=== PATIENT | female | born 1990 | race African-American/Black ===

== ENCOUNTER 2016-05-22 19:30 | Inpatient (IN) | payer MEDICAID ==
[~2016-05-22] VITALS: Ht 167.6 cm; Wt 59.0 kg
[2016-05-22 20:51] VITALS: BP 125/75
[2016-05-22 21:30] LABS: BASOPHILS % (AUTO) 0.9 % (0.0-2.0); LYMPHOCYTES % (AUTO) 10.4 % (20.0-45.0); MEAN CORPUSCULAR HEMOGLOBIN 32.5 PG (27.0-31.0); MEAN CORPUSCULAR HGB CONC 35.1 G/DL (32.0-36.0); MEAN CORPUSCULAR VOLUME 93 FL (80-99); MEAN PLATELET VOLUME 10.6 FL (6.5-10.1); MONOCYTES % (AUTO) 5.2 % (1.0-10.0); NEUTROPHILS % (AUTO) 82.5 % (45.0-75.0); PLATELET COUNT 170 K/UL (150-450); RED BLOOD COUNT 3.72 M/UL (4.20-5.40); RED CELL DISTRIBUTION WIDTH 12.1 % (11.6-14.8); WHITE BLOOD COUNT 9.4 K/UL (4.8-10.8)
[2016-05-22 21:39] LABS: ALANINE AMINOTRANSFERASE 9 U/L (3-33); ALBUMIN/GLOBULIN RATIO 1.2 (1.0-2.7); ANION GAP 15 (5-15); ASPARTATE AMINO TRANSFERASE 19 U/L (5-40); CALCIUM 9.1 mg/dL (8.6-10.2); CARBON DIOXIDE 28 mEQ/L (20-30); CHLORIDE 97 mEQ/L (98-107); CREATININE 0.9 mg/dL (0.5-0.9); GLOMERULAR FILTRATION RATE > 60 mL/min (>60); HEMOLYSIS 2; LIPASE 23 U/L (< 60); POTASSIUM 3.9 mEQ/L (3.4-4.9); SODIUM 140 mEQ/L (135-145); TOTAL PROTEIN 7.5 g/dL (6.6-8.7)
[2016-05-22] MEDS ORDERED: Morphine Sulfate 4mg/ml Inj IVP ONE (23:15)
[2016-05-22 23:35] VITALS: BP 95/55
--- NOTE | 2016-05-22 23:42 | Emergency Room Report ---
History of Present Illness General Chief Complaint: Abdominal Pain Source: EMS Present Illness HPI 25-year-old female presents to ED for evaluation of abdominal pain. Pain started approximately 30 minutes prior to arrival. Pain is 8/10, sharp, lower. Nonradiating. Notes nausea and vomiting. Denies fevers or chills. Patient states one month ago she had a "". Patient she took the pills she received from [facility]. States she was approximately 6 weeks at the time. Was told there is a problem with her but does not know what the problem was. Denies any vaginal bleeding or discharge. Denies dysuria or hematuria. No aggravating relieving factors. Denies any other associated symptoms Allergies: Coded Allergies: No Known Allergies (Unverified , 05/22/16) Patient History Past Medical History: none Past Surgical History: none Pertinent Family History: none Social History: Denies: alcohol use, drug use, smoking Now: No Immunizations: UTD Reviewed Nursing Documentation: PMH: Agreed, PSxH: Agreed Nursing Documentation-PMH Past Medical History: No Stated History Review of Systems All Other Systems: negative except mentioned in HPI Physical Exam Vital Signs Date Time Temp Pulse Resp B/P Pulse Ox O2 Delivery O2 Flow Rate FiO2 05/22/16 20:34 98.4 77 19 125/75 98 Room Air Sp02 EP Interpretation: reviewed, normal General Appearance: alert, GCS 15, non-toxic, mild distress Head: normocephalic Eyes: bilateral eye PERRL, bilateral eye normal inspection ENT: normal ENT inspection Neck: normal inspection Respiratory: chest non-tender, lungs clear, normal breath sounds, speaking full sentences Cardiovascular #1: regular rate, rhythm, no edema Gastrointestinal: normal bowel sounds, soft, non-distended, no guarding, no rebound, tenderness - suprapubic Rectal: deferred Genitourinary: no CVA tenderness Musculoskeletal: normal inspection Neurologic: alert, oriented x3, responsive, motor strength/tone normal, sensory intact, speech normal Psychiatric: normal inspection Skin: normal inspection Lymphatic: normal inspection Medical Decision Making Diagnostic Impression: Primary Impression: Ectopic Qualified Codes: O00.90 - Unspecified ectopic without intrauterine Additional Impression: Abdominal pain Qualified Codes: R10.30 - Lower abdominal pain, unspecified ER Course Hospital Course 25-year-old female presents ED complaining of abdominal pain and vomiting. Had one month ago Differential diagnoses include: PID, TOA, ectopic , retained products of conception Clinical course Patient placed on stretcher. occ ther. After initial history and physical I ordered labs, IV fluids, UA, pain medication and US Labs - no leukocytosis, Hb/Hct stable, electrolytes ok, BHCG 605 Pelvic US - pelvic mass within midline . L adenxal mass continguous with midline lesion. ? ectopic Case discussed with Dr. Umanzor who agreed to consult Case discussed with Dr. Gonsalez and he agreed to accept the patient to his service for further care and support I feel this is a highly complex case requiring extensive working including EKG/ Rhythm strip, Xray/CT/US, Blood/urine lab work, repeat exams while in ED, and administration of strong opiates/narcotics for pain control, admission to hospital or close patient follow up. Diagnosis - ectopic , abdominal pain Patient admitted to floor in serious condition Labs Test 05/22/16 21:00 White Blood Count 9.4 K/UL (4.8-10.8) Red Blood Count 3.72 M/UL (4.20-5.40) Hemoglobin 12.1 G/DL (12.0-16.0) Hematocrit 34.4 % (37.0-47.0) Mean Corpuscular Volume 93 FL (80-99) Mean Corpuscular Hemoglobin 32.5 PG (27.0-31.0) Mean Corpuscular Hemoglobin Concent 35.1 G/DL (32.0-36.0) Red Cell Distribution Width 12.1 % (11.6-14.8) Platelet Count 170 K/UL (150-450) Mean Platelet Volume 10.6 FL (6.5-10.1) Neutrophils (%) (Auto) 82.5 % (45.0-75.0) Lymphocytes (%) (Auto) 10.4 % (20.0-45.0) Monocytes (%) (Auto) 5.2 % (1.0-10.0) Eosinophils (%) (Auto) 1.0 % (0.0-3.0) Basophils (%) (Auto) 0.9 % (0.0-2.0) Sodium Level 140 mEQ/L (135-145) Potassium Level 3.9 mEQ/L (3.4-4.9) Chloride Level 97 mEQ/L (98-107) Carbon Dioxide Level 28 mEQ/L (20-30) Anion Gap 15 (5-15) Blood Urea Nitrogen 16 mg/dL (7-23) Creatinine 0.9 mg/dL (0.5-0.9) Estimat Glomerular Filtration Rate > 60 mL/min (>60) Glucose Level 96 mg/dL (74-106) Calcium Level 9.1 mg/dL (8.6-10.2) Total Bilirubin 0.3 mg/dL (0.0-1.2) Aspartate Amino Transf (AST/SGOT) 19 U/L (5-40) Alanine Aminotransferase (ALT/SGPT) 9 U/L (3-33) Alkaline Phosphatase 90 U/L (35-104) Total Protein 7.5 g/dL (6.6-8.7) Albumin 4.2 g/dL (3.5-5.2) Globulin 3.3 g/dL Albumin/Globulin Ratio 1.2 (1.0-2.7) Lipase 23 U/L (< 60) Human Chorionic Gonadotropin, Quant 605 mIU/mL CT/MRI/US Diagnostic Results CT/MRI/US Diagnostic Results : Imaging Test Ordered: Pelvic US Impression pelvic mass within the midline measuring up to 4.9 cm. The left adnexal mass is also suspected but appears immediately contiguous with the midline lesion. The left adnexal mass may represent an ectopic with the midline mass a heterogeneous blood clot. Last Vital Signs Date Time Temp Pulse Resp B/P Pulse Ox O2 Delivery O2 Flow Rate FiO2 05/22/16 23:35 97.8 80 12 95/55 100 Room Air Status: improved Disposition: ADMITTED INPATIENT Condition: Serious SONDRA SNOW M.D. May 22, 2016 23:42
[2016-05-23 01:30] VITALS: BP 101/58
[2016-05-23] MEDS ORDERED: Methotrexate Sodium 50mg/2ml vial IM ONE ×2 (01:45→09:00)
[2016-05-23] MEDS ORDERED: Morphine Sulfate 2mg/ml Inj IVP PRN (02:45)
[2016-05-23] MEDS ORDERED: Nitroglycerin Subl 0.4mg tab (Bottle Of 25) SL PRN (02:45)
[2016-05-23] MEDS ORDERED: Miralax 17gm pkt ORAL PRN (02:45)
[2016-05-23] MEDS ORDERED: Mylanta II UD 30ml ORAL PRN (02:45)
[2016-05-23] MEDS ORDERED: UNOBMED (02:48)
[2016-05-23] MEDS ORDERED: IBUPROFEN600 MG ORAL (02:50)
[2016-05-23 03:15] VITALS: BP_SYST 101; BP_SYST 99; BP_DIAS 50; BP_DIAS 55
[2016-05-23] MEDS: D5 1/2NS 1,000 ML IV SCH ×2 (04:19→17:48)
[2016-05-23 08:00] VITALS: BP 91/52
[2016-05-23] MEDS: Heparin 5000 units/ml inj SUBQ SCH ×2 (10:01→20:52)
[2016-05-23 10:05] LABS: PROTHROMBIN TIME 10.6 SEC (9.30-11.50)
--- NOTE | 2016-05-23 10:37 | GI Initial Consult Note ---
History of Present Illness General Date patient seen: May 23, 2016 Time patient seen: 09:00 Reason for Hospitalization: Abdominal Pain Referring physician: ZARI CHO Reason for Consultation: ABDOMINAL PAIN Present Illness HPI 25-year-old female presents to ED for evaluation of abdominal pain. Pain started approximately 30 minutes prior to arrival. Pain is 8/10, sharp, lower. Nonradiating. Notes nausea and vomiting. Denies fevers or chills. Patient states one month ago she had a "". Patient she took the pills she received from [facility]. States she was approximately 6 weeks at the time. Was told there is a problem with her but does not know what the problem was. Denies any vaginal bleeding or discharge. Denies dysuria or hematuria. No aggravating relieving factors. Denies any other associated symptoms GI CONSULT: HPI as noted above. GI consulted for abdominal pain with reported eps of N/V. Pt seen on floor, awake A&Ox4 NAD with no active s/sx of N/V. CBC , LFTs, lipase unremarkable. Pt denies any medical history. Denies ETOH, IVDA , and tobacco use. No history of any endoscopic procedures. Home Meds Reported Medications Ibuprofen* (MOTRIN*) 600 Mg Tablet, 600 MG ORAL THREE TIMES A DAY, #30 TAB 0 Refills 05/23/16 Discontinued Reported Medications Unable to Obtain Medications (UNABLE TO OBTAIN MEDS) 1 Ea Ea 05/23/16 Med list reviewed/reconciled: Yes Allergies: Coded Allergies: No Known Allergies (Unverified , 05/22/16) Patient History History Provided By: Patient, Medical Record PMH Narrative Past Medical History: none Past Surgical History: none Pertinent Family History: none Social History: Denies: alcohol use, drug use, smoking Now: No Immunizations: UTD Reviewed Nursing Documentation: PMH: Agreed, PSxH: Agreed Nursing Documentation-PMH Past Medical History: No Stated History Social History: Denies: alcohol use, drug use, other, smoking Review of Systems All Other Systems: negative except mentioned in HPI Physical Exam Vital Signs Date Time Temp Pulse Resp B/P Pulse Ox O2 Delivery O2 Flow Rate FiO2 05/22/16 20:34 98.4 77 19 125/75 98 Room Air Sp02 EP Interpretation: reviewed Labs Laboratory Tests Test 05/22/16 21:00 05/23/16 09:10 White Blood Count 9.4 K/UL (4.8-10.8) Red Blood Count 3.72 M/UL (4.20-5.40) L Hemoglobin 12.1 G/DL (12.0-16.0) Hematocrit 34.4 % (37.0-47.0) L Mean Corpuscular Volume 93 FL (80-99) Mean Corpuscular Hemoglobin 32.5 PG (27.0-31.0) H Mean Corpuscular Hemoglobin Concent 35.1 G/DL (32.0-36.0) Red Cell Distribution Width 12.1 % (11.6-14.8) Platelet Count 170 K/UL (150-450) Mean Platelet Volume 10.6 FL (6.5-10.1) H Neutrophils (%) (Auto) 82.5 % (45.0-75.0) H Lymphocytes (%) (Auto) 10.4 % (20.0-45.0) L Monocytes (%) (Auto) 5.2 % (1.0-10.0) Eosinophils (%) (Auto) 1.0 % (0.0-3.0) Basophils (%) (Auto) 0.9 % (0.0-2.0) Sodium Level 140 mEQ/L (135-145) Potassium Level 3.9 mEQ/L (3.4-4.9) Chloride Level 97 mEQ/L (98-107) L Carbon Dioxide Level 28 mEQ/L (20-30) Anion Gap 15 (5-15) Blood Urea Nitrogen 16 mg/dL (7-23) Creatinine 0.9 mg/dL (0.5-0.9) Estimat Glomerular Filtration Rate > 60 mL/min (>60) Glucose Level 96 mg/dL (74-106) Calcium Level 9.1 mg/dL (8.6-10.2) Total Bilirubin 0.3 mg/dL (0.0-1.2) Aspartate Amino Transf (AST/SGOT) 19 U/L (5-40) Alanine Aminotransferase (ALT/SGPT) 9 U/L (3-33) Alkaline Phosphatase 90 U/L (35-104) Total Protein 7.5 g/dL (6.6-8.7) Albumin 4.2 g/dL (3.5-5.2) Globulin 3.3 g/dL Albumin/Globulin Ratio 1.2 (1.0-2.7) Lipase 23 U/L (< 60) Human Chorionic Gonadotropin, Quant 605 mIU/mL Prothrombin Time 10.6 SEC (9.30-11.50) Prothromb Time International Ratio 1.0 (0.9-1.1) Activated Partial Thromboplast Time 25 SEC (23-33) General Appearance: well appearing, no apparent distress, alert Head: normocephalic EENT: PERRL/EOMI, normal ENT inspection Neck: normal inspection, full range of motion, supple Respiratory: normal breath sounds Cardiovascular: normal rate Gastrointestinal: normal inspection, non tender, soft, normal bowel sounds Rectal: deferred Genitourinary: normal inspection, no CVA tenderness Musculoskeletal: normal inspection, back normal Neurologic: normal inspection, alert, oriented x3, responsive Psychiatric: normal inspection, judgement/insight normal, memory normal Skin: normal inspection, normal color, no rash, warm/dry Current Medications Current Medications Medications (Trade) Dose Ordered Sig/Bowen Route PRN Reason Start Time Stop Time Status Last Admin Dose Admin Acetaminophen (Tylenol) 650 mg Q4H PRN ORAL fever 05/23/16 02:45 06/22/16 02:44 Al Hydroxide/Mg Hydroxide (Mylanta II) 30 ml Q6H PRN ORAL dyspepsia 05/23/16 02:45 06/22/16 02:44 Dextrose (Dextrose 50%) STAT PRN IV Hypoglycemia 05/23/16 02:45 06/22/16 02:44 Dextrose/Sodium Chloride (D5 0.45% NS) 1,000 ml @ 75 mls/hr [id number] IV 05/23/16 04:00 06/22/16 03:59 05/23/16 04:19 Diphenhydramine HCl (Benadryl) 25 mg Q6H PRN ORAL Itching/Pruritis 05/23/16 02:45 06/22/16 02:44 Heparin Sodium (Porcine) (Heparin 5000 units/ml) 5,000 units EVERY 12 HOURS SUBQ 05/23/16 09:00 06/22/16 08:59 05/23/16 10:01 Morphine Sulfate (Morphine Sulfate) 2 mg EVERY 4 HOURS PRN IVP severe Pain (Pain Scale 7-10) 05/23/16 02:45 05/30/16 02:44 Nitroglycerin (Ntg) 0.4 mg Q5M X 3 DOSES PRN SL Prn Chest Pain 05/23/16 02:45 06/22/16 02:44 Ondansetron HCl (Zofran) 4 mg Q6H PRN IVP Nausea & Vomiting 05/23/16 02:45 06/22/16 02:44 Polyethylene Glycol (Miralax) 17 gm HSPRN PRN ORAL Constipation 05/23/16 02:45 06/22/16 02:44 Temazepam (Restoril) 15 mg HSPRN PRN ORAL Insomnia 05/23/16 02:45 05/30/16 02:44 GI: Plan Problems: (1) Ectopic (2) Abdominal pain (3) Nausea & vomiting Plan recommend [employer] consult symptomatic treatment at this time zofran prn pain mgmt fu pelvic US fu abdominal US, ok for regular diet after imaging study fu labs Discussed with Dr. Guajardo. Thank you for referring this patient, we will follow. Arlene Cheng N.P. May 23, 2016 10:37
[2016-05-23 12:00] VITALS: BP 110/70
--- NOTE | 2016-05-23 14:17 | Diagnostic Imaging Report ---
Indication: Pelvic pain, recent medical Technique: Transabdominal and transvaginal images Comparison: None Findings: Uterus is anteverted, retroflexed, measures 8.9 cm length of 4.4 cm AP. The endometrium measures 7 mm thick no intrauterine is demonstrated. No myometrial abnormality. Extending posterior to the uterus and extending for both adnexal regions, there is a 9 x 5.4 cm mixed echogenicity mass. This appears to be hypovascular or avascular. If there is mostly related to the left ovary. The left ovary measures 2.9 cm in length. Right ovary measures 3.6 cm in length with areas demonstrate normal blood flow. There is no free cul-de-sac fluid Impression: 9 x 5.4 cm mixed echogenicity mass involving the left adnexal region and extending posterior to the uterus. Suspect that this represents a large hematoma, raises concern for ectopic , possibly of left adnexal origin. Correlation with clinical findings and serial beta hCGs is recommended. Other etiologies such as neoplasm should also be considered This agrees with the preliminary interpretation provided overnight by [facility] teleradiology service.
--- NOTE | 2016-05-23 14:19 | Diagnostic Imaging Report ---
Indication: Abdominal pain, nausea, vomiting Technique: Subramanian-scale and duplex images of the upper abdomen were obtained Comparison: None Findings: . Gallbladder is unremarkable, without stones, wall thickening, nor pericholecystic fluid. Sonographic Griggs's sign is negative. Common bile duct measures 4 mm in diameter. No intrahepatic biliary ductal dilatation. Liver demonstrates normal echogenicity, no focal abnormality. Portal vein and hepatic veins are patent.. Pancreas is unremarkable. Spleen is unremarkable. Left kidney measures 10.8 cm in length. Right kidney measures 11.8 cm length. Both kidneys demonstrate normal echogenicity. There is no hydronephrosis. No focal abnormality. . Non-aneurysmal abdominal aorta. Impression: Negative
--- NOTE | 2016-05-23 15:38 | History & Physical ---
History and Physical History & Physicial Uday Gonsalez MD May 23, 2016 15:38
[2016-05-23 17:00] VITALS: BP 115/54
--- NOTE | 2016-05-23 18:58 | Consultation ---
Consult Note Consult Note 25 year old s/p Medical 1 mo ago Now with probable ectopic - likely twin ectopic remaining from 1 month ago B-HCG = 600 Pt is with mild abdominal pain, no rebound, some increase with deep palpation Assessment/Plan 1. Treat ectopic with Methotrexate IM - ordered previously 2. D/C to home after injection given 3. Follow up with health clinic where patient received medical MIGUEL ANGEL YOON May 23, 2016 18:58
[2016-05-23 20:00] VITALS: BP 118/68
--- NOTE | 2016-05-23 20:33 | Consultation ---
History of Present Illness General Chief Complaint: Abdominal Pain Referring physician: ZARI CHO Reason for Consultation: ABDOMINAL PAIN Present Illness Allergies: Coded Allergies: No Known Allergies (Unverified , 05/22/16) Medication History Scheduled Ibuprofen* (Motrin*), 600 MG ORAL THREE TIMES A DAY, (Reported) Discontinued Medications Unable to Obtain Medications (Unable To Obtain Meds), (Reported) Discontinued Reason: Pt stopped taking med Patient History Healthcare decision maker RAFA SAINI Resuscitation status Full Code Advanced Directive on File N/A Physical Exam Last 24 Hour Vital Signs Date Time Temp Pulse Resp B/P Pulse Ox O2 Delivery O2 Flow Rate FiO2 05/23/16 17:00 97.7 88 17 115/54 97 Room Air 05/23/16 12:00 98.2 74 19 110/70 99 Room Air 05/23/16 08:00 98.0 76 19 91/52 98 Room Air 05/23/16 03:33 97.8 81 19 101/58 100 Room Air 05/23/16 03:15 98.1 71 18 99/55 99 Room Air 05/23/16 03:15 81 16 101/50 100 Room Air 05/23/16 01:30 83 19 101/58 100 Room Air 05/23/16 00:22 97.8 05/22/16 23:35 97.8 80 12 95/55 100 Room Air 05/22/16 20:51 98.4 84 19 125/75 98 Room Air 05/22/16 20:34 98.4 77 19 125/75 98 Room Air Intake and Output 05/22/16 05/23/16 19:00 07:00 Intake Total 1204 ml Balance 1204 ml Intake IV Total 1204 ml # Voids 4 Laboratory Tests Test 05/22/16 21:00 05/23/16 09:10 White Blood Count 9.4 K/UL (4.8-10.8) Red Blood Count 3.72 M/UL (4.20-5.40) L Hemoglobin 12.1 G/DL (12.0-16.0) Hematocrit 34.4 % (37.0-47.0) L Mean Corpuscular Volume 93 FL (80-99) Mean Corpuscular Hemoglobin 32.5 PG (27.0-31.0) H Mean Corpuscular Hemoglobin Concent 35.1 G/DL (32.0-36.0) Red Cell Distribution Width 12.1 % (11.6-14.8) Platelet Count 170 K/UL (150-450) Mean Platelet Volume 10.6 FL (6.5-10.1) H Neutrophils (%) (Auto) 82.5 % (45.0-75.0) H Lymphocytes (%) (Auto) 10.4 % (20.0-45.0) L Monocytes (%) (Auto) 5.2 % (1.0-10.0) Eosinophils (%) (Auto) 1.0 % (0.0-3.0) Basophils (%) (Auto) 0.9 % (0.0-2.0) Sodium Level 140 mEQ/L (135-145) Potassium Level 3.9 mEQ/L (3.4-4.9) Chloride Level 97 mEQ/L (98-107) L Carbon Dioxide Level 28 mEQ/L (20-30) Anion Gap 15 (5-15) Blood Urea Nitrogen 16 mg/dL (7-23) Creatinine 0.9 mg/dL (0.5-0.9) Estimat Glomerular Filtration Rate > 60 mL/min (>60) Glucose Level 96 mg/dL (74-106) Calcium Level 9.1 mg/dL (8.6-10.2) Total Bilirubin 0.3 mg/dL (0.0-1.2) Aspartate Amino Transf (AST/SGOT) 19 U/L (5-40) Alanine Aminotransferase (ALT/SGPT) 9 U/L (3-33) Alkaline Phosphatase 90 U/L (35-104) Total Protein 7.5 g/dL (6.6-8.7) Albumin 4.2 g/dL (3.5-5.2) Globulin 3.3 g/dL Albumin/Globulin Ratio 1.2 (1.0-2.7) Lipase 23 U/L (< 60) Human Chorionic Gonadotropin, Quant 605 mIU/mL Prothrombin Time 10.6 SEC (9.30-11.50) Prothromb Time International Ratio 1.0 (0.9-1.1) Activated Partial Thromboplast Time 25 SEC (23-33) Height (Feet): 5 Height (Inches): 6.00 Weight (Pounds): 130 Medications Current Medications Medications (Trade) Dose Ordered Sig/Bowen Route PRN Reason Start Time Stop Time Status Last Admin Dose Admin Acetaminophen (Tylenol) 650 mg Q4H PRN ORAL fever 05/23/16 02:45 06/22/16 02:44 Al Hydroxide/Mg Hydroxide (Mylanta II) 30 ml Q6H PRN ORAL dyspepsia 05/23/16 02:45 06/22/16 02:44 Dextrose (Dextrose 50%) STAT PRN IV Hypoglycemia 05/23/16 02:45 06/22/16 02:44 Dextrose/Sodium Chloride (D5 0.45% NS) 1,000 ml @ 75 mls/hr [id number] IV 05/23/16 04:00 06/22/16 03:59 05/23/16 17:48 Diphenhydramine HCl (Benadryl) 25 mg Q6H PRN ORAL Itching/Pruritis 05/23/16 02:45 06/22/16 02:44 Heparin Sodium (Porcine) (Heparin 5000 units/ml) 5,000 units EVERY 12 HOURS SUBQ 05/23/16 09:00 06/22/16 08:59 05/23/16 10:01 Methotrexate (Methotrexate) 75 mg ONCE ONCE IM 05/24/16 10:00 05/24/16 10:01 UNV Morphine Sulfate (Morphine Sulfate) 2 mg EVERY 4 HOURS PRN IVP severe Pain (Pain Scale 7-10) 05/23/16 02:45 05/30/16 02:44 Nitroglycerin (Ntg) 0.4 mg Q5M X 3 DOSES PRN SL Prn Chest Pain 05/23/16 02:45 06/22/16 02:44 Ondansetron HCl (Zofran) 4 mg Q6H PRN IVP Nausea & Vomiting 05/23/16 02:45 06/22/16 02:44 Polyethylene Glycol (Miralax) 17 gm HSPRN PRN ORAL Constipation 05/23/16 02:45 06/22/16 02:44 Temazepam (Restoril) 15 mg HSPRN PRN ORAL Insomnia 05/23/16 02:45 05/30/16 02:44 YOLY REYNAGA May 23, 2016 20:33
[2016-05-24] VITALS: BP 93/52
--- NOTE | 2016-05-24 02:28 | History and Physical Report ---
DATE OF ADMISSION: 05/23/2016 CHIEF COMPLAINT: Abdominal pain and nausea. HISTORY OF PRESENT ILLNESS: This is a 25-year-old, female who denies any past medical history and past surgical history, who presented to the hospital complaining about abdominal pain associated with nausea, it started 30 minutes prior to arrival, 8/10 in intensity. Sharp in the lower and nonradiating. She had no fever or chills. She stated that one month ago she had and she took her pills. She received it from the [facility], and approximately 6 weeks ago at that time. She told them that it is a problem with her , but does not know what problem. She denies any vaginal bleeding or discharge. She denies any dysuria, hematuria. Shortly after initial evaluation in the emergency, the patient was admitted to the hospital with abdominal pain most likely secondary to ectopic . PAST MEDICAL HISTORY: None. PAST SURGICAL HISTORY: None. MEDICATIONS: Medications at home is none. ALLERGIES: No known drug allergies. SOCIAL HISTORY: No smoking, alcohol, or drugs. FAMILY HISTORY: Noncontributory. REVIEW OF SYSTEMS: Mostly as above. Denies any dysuria, frequency, or hematochezia. Denies any hemoptysis or hematochezia. Denies any suicidal or homicidal ideation. PHYSICAL EXAMINATION: VITAL SIGNS: On admission, temperature 98.4, pulse of 77, respirations 15, and blood pressure 125/75. GENERAL: The patient is awake, responsive, in no acute distress. HEAD AND NECK: Pupils are equal and reactive to light. Anicteric. Neck was supple. No JVD. LUNGS: Good air entry throughout. HEART: S1 and S2. Regular rhythm. No gallops. ABDOMEN: Soft. Tenderness in the lower quadrant. No rebound tenderness, no fluid shift. EXTREMITIES: No cyanosis, clubbing, or edema. NEUROLOGIC: Cranial nerves II through XII are grossly intact. Motor is 5/5 and moving all extremities. LABORATORY DATA: On admission from the ER, WBC of 9.4, hemoglobin 12, hematocrit 34, platelets 170. Sodium 140, potassium 2.9, chloride 97, bicarbonate 28, BUN 16, creatinine 0.9, and glucose is 96. Liver function essentially unremarkable. Beta HCG 3605, PT of 10, INR 1.0, PTT of 25. The patient had a transvaginal ultrasound, noted to have 9 x 5.4 centimeter mixed echogenic mass including the left adnexal region extending posteriorly to the uterus, suspect that it represented a large hematoma, raising a concern of ectopic , possibility of the left adnexal origin with the clinical correlation with the clinical findings. The patient had an abdominal ultrasound done, negative for abdominal ultrasound. ASSESSMENT: Ectopic . PLAN: Admit the patient to Med/Surg. We will follow up laboratory. Discussed case with Dr. Shahriar Umanzor' office for CLASSIFICATION CONTROL CLERK consultation as well as follow up with gastrointestinal consultation who had seen the patient already. Monitor laboratory, regular diet, pain control and follow up with beta HCG level. Uday Gonslaez M.D. DR: TENZIN JOB#: [id number] CC:
[2016-05-24] MEDS: D5 1/2NS 1,000 ML IV SCH ×2 (07:07→20:00)
[2016-05-24 08:13] VITALS: BP 96/55
[2016-05-24] MEDS: Heparin 5000 units/ml inj SUBQ SCH ×2 (08:22→21:00)
[2016-05-24] MEDS ORDERED: Methotrexate Sodium 50mg/2ml vial IM ONE (10:00)
[2016-05-24] MEDS ORDERED: D5NS 1000ml IV ONE (11:03)
[2016-05-24 12:00] VITALS: BP 110/64
--- NOTE | 2016-05-24 15:43 | Internal Med Progress Note ---
Subjective Date of Service: May 24, 2016 Physician Name Roger Brennan Attending Physician Uday Gonsalez MD Current Medications Medications (Trade) Dose Ordered Sig/Bowen Route PRN Reason Start Time Stop Time Status Last Admin Dose Admin Acetaminophen (Tylenol) 650 mg Q4H PRN ORAL fever 05/23/16 02:45 06/22/16 02:44 Al Hydroxide/Mg Hydroxide (Mylanta II) 30 ml Q6H PRN ORAL dyspepsia 05/23/16 02:45 06/22/16 02:44 Dextrose (Dextrose 50%) STAT PRN IV Hypoglycemia 05/23/16 02:45 06/22/16 02:44 Dextrose/Sodium Chloride (D5 0.45% NS) 1,000 ml @ 75 mls/hr [id number] IV 05/23/16 04:00 06/22/16 03:59 05/24/16 07:07 Diphenhydramine HCl (Benadryl) 25 mg Q6H PRN ORAL Itching/Pruritis 05/23/16 02:45 06/22/16 02:44 Heparin Sodium (Porcine) (Heparin 5000 units/ml) 5,000 units EVERY 12 HOURS SUBQ 05/23/16 09:00 06/22/16 08:59 05/23/16 10:01 Morphine Sulfate (Morphine Sulfate) 2 mg EVERY 4 HOURS PRN IVP severe Pain (Pain Scale 7-10) 05/23/16 02:45 05/30/16 02:44 Nitroglycerin (Ntg) 0.4 mg Q5M X 3 DOSES PRN SL Prn Chest Pain 05/23/16 02:45 06/22/16 02:44 Ondansetron HCl (Zofran) 4 mg Q6H PRN IVP Nausea & Vomiting 05/23/16 02:45 06/22/16 02:44 Polyethylene Glycol (Miralax) 17 gm HSPRN PRN ORAL Constipation 05/23/16 02:45 06/22/16 02:44 Temazepam (Restoril) 15 mg HSPRN PRN ORAL Insomnia 05/23/16 02:45 05/30/16 02:44 Allergies: Coded Allergies: No Known Allergies (Unverified , 05/22/16) ROS Limited/Unobtainable: No Constitutional: Reports: no symptoms HEENT: Reports: no symptoms Cardiovascular: Reports: no symptoms Respiratory: Reports: no symptoms Gastrointestinal/Abdominal: Reports: abdominal pain Genitourinary: Reports: no symptoms Neurologic/Psychiatric: Reports: no symptoms Subjective 25 YO F admitted with abdominal pain. Now ectopic . Cover for Int Med -Dr Gonsalez. Objective Last Vital Signs Date Time Temp Pulse Resp B/P Pulse Ox O2 Delivery O2 Flow Rate FiO2 05/24/16 12:00 98.6 80 21 110/64 100 Room Air Intake and Output 05/23/16 05/24/16 19:00 07:00 Intake Total 525 ml 1440 ml Balance 525 ml 1440 ml Intake Oral 240 ml IV Total 525 ml 1200 ml # Voids 2 7 Objective General: alert, cooperative, no distress, appears stated age Head: normocephalic, without obvious abnormality, atraumatic Eyes: conjunctivae/corneas clear. PERRL, EOM's intact Throat: lips, mucosa, and tongue normal. MMM Neck: supple, symmetrical, trachea midline, and no JVD Lungs: clear to auscultation bilaterally Heart: regular rate and rhythm, S1, S2 normal, no murmur, click, rub or gallop Abdomen: soft, tender to palpation, non-distended, bowel sounds normal; no masses or organomegaly Extremities: extremities normal, atraumatic, no cyanosis or edema Pulses: 2+ and symmetric Skin: skin color, texture, turgor normal; no rashes or lesions Neurologic: grossly normal, no focal deficits Assessment/Plan Problem List: (1) Nausea & vomiting (2) Abdominal pain (3) Ectopic Assessment & Plan: See CLIENT LEADER note. S/P Methotrexate. Assessment/Plan D/C home. Follow up with primary care physician. ROGER BRENNAN May 24, 2016 15:43
[2016-05-24 16:00] VITALS: BP 119/67
[2016-05-24 16:56] LABS: BASOPHILS % (AUTO) 1.2 % (0.0-2.0); EOSINOPHILS % (AUTO) 2.9 % (0.0-3.0); LYMPHOCYTES % (AUTO) 32.8 % (20.0-45.0); MEAN CORPUSCULAR HEMOGLOBIN 31.9 PG (27.0-31.0); MEAN CORPUSCULAR HGB CONC 33.8 G/DL (32.0-36.0); MEAN CORPUSCULAR VOLUME 94 FL (80-99); MONOCYTES % (AUTO) 4.8 % (1.0-10.0); NEUTROPHILS % (AUTO) 58.3 % (45.0-75.0); PLATELET COUNT 180 K/UL (150-450); RED BLOOD COUNT 3.78 M/UL (4.20-5.40); RED CELL DISTRIBUTION WIDTH 12.6 % (11.6-14.8)
[2016-05-24 17:17] LABS: ALANINE AMINOTRANSFERASE 10 U/L (3-33); ALBUMIN/GLOBULIN RATIO 1.2 (1.0-2.7); AMYLASE 66 U/L (10-110); ANION GAP 14 (5-15); ASPARTATE AMINO TRANSFERASE 17 U/L (5-40); CALCIUM 9.5 mg/dL (8.6-10.2); CARBON DIOXIDE 26 mEQ/L (20-30); CHLORIDE 97 mEQ/L (98-107); CREATININE 0.8 mg/dL (0.5-0.9); GLOMERULAR FILTRATION RATE > 60 mL/min (>60); HEMOLYSIS 4; LIPASE 34 U/L (< 60); POTASSIUM 3.8 mEQ/L (3.4-4.9); SODIUM 137 mEQ/L (135-145); TOTAL PROTEIN 7.6 g/dL (6.6-8.7)
[2016-05-24 20:00] VITALS: BP 118/64
--- NOTE | 2016-05-24 20:39 | Pre-Procedure Note/Attestation ---
Pre-Procedure Note/Attestation Complete Prior to Procedure Planned Procedure: not applicable Indications for Procedure Pre-Operative Diagnosis: ectopic vs incomplete medical Attestation I attest that I discussed the nature of the procedure; its benefits; risks and complications; and alternatives (and the risks and benefits of such alternatives ), prior to the procedure, with the patient (or the patient's legal energy conservation representative). I attest that, if there was a reasonable possibility of needing a blood transfusion, the patient (or the patient's legal energy conservation representative) was given the [facility] standardized written summary, pursuant to the [place] Blood Safety Act ([place] Health and Safety Code # 1645, as amended). I attest that I re-evaluated the patient just prior to the surgery and that there has been no change in the patient's H&P, except as documented below: LYNN WHITMORE May 24, 2016 20:39
[2016-05-25] VITALS: BP 109/59
[2016-05-25 04:00] VITALS: BP 96/50
[2016-05-25] MEDS: Heparin 5000 units/ml inj SUBQ SCH (08:35)
[2016-05-25 08:44] VITALS: BP 146/82
[2016-05-25] MEDS: D5 1/2NS 1,000 ML IV SCH (09:20)
--- NOTE | 2016-05-25 15:58 | Internal Med Progress Note ---
Subjective Date of Service: May 25, 2016 Physician Name Roger Brennan Attending Physician Uday Gonsalez MD Allergies: Coded Allergies: No Known Allergies (Unverified , 05/22/16) ROS Limited/Unobtainable: No Constitutional: Reports: no symptoms HEENT: Reports: no symptoms Cardiovascular: Reports: no symptoms Respiratory: Reports: no symptoms Gastrointestinal/Abdominal: Reports: no symptoms Genitourinary: Reports: no symptoms Neurologic/Psychiatric: Reports: no symptoms Subjective 25 YO F admitted with abdominal pain. Now ectopic . Cover for Int Med -Dr Gonsalez. Objective Last Vital Signs Date Time Temp Pulse Resp B/P Pulse Ox O2 Delivery O2 Flow Rate FiO2 05/25/16 08:44 97.1 95 20 146/82 99 Nasal Cannula 2.0 Laboratory Tests Test 05/24/16 16:30 White Blood Count 6.0 K/UL (4.8-10.8) Red Blood Count 3.78 M/UL (4.20-5.40) L Hemoglobin 12.0 G/DL (12.0-16.0) Hematocrit 35.6 % (37.0-47.0) L Mean Corpuscular Volume 94 FL (80-99) Mean Corpuscular Hemoglobin 31.9 PG (27.0-31.0) H Mean Corpuscular Hemoglobin Concent 33.8 G/DL (32.0-36.0) Red Cell Distribution Width 12.6 % (11.6-14.8) Platelet Count 180 K/UL (150-450) Mean Platelet Volume 11.0 FL (6.5-10.1) H Neutrophils (%) (Auto) 58.3 % (45.0-75.0) Lymphocytes (%) (Auto) 32.8 % (20.0-45.0) Monocytes (%) (Auto) 4.8 % (1.0-10.0) Eosinophils (%) (Auto) 2.9 % (0.0-3.0) Basophils (%) (Auto) 1.2 % (0.0-2.0) Activated Partial Thromboplast Time 26 SEC (23-33) Sodium Level 137 mEQ/L (135-145) Potassium Level 3.8 mEQ/L (3.4-4.9) Chloride Level 97 mEQ/L (98-107) L Carbon Dioxide Level 26 mEQ/L (20-30) Anion Gap 14 (5-15) Blood Urea Nitrogen 6 mg/dL (7-23) L Creatinine 0.8 mg/dL (0.5-0.9) Estimat Glomerular Filtration Rate > 60 mL/min (>60) Glucose Level 94 mg/dL (74-106) Calcium Level 9.5 mg/dL (8.6-10.2) Total Bilirubin 0.3 mg/dL (0.0-1.2) Aspartate Amino Transf (AST/SGOT) 17 U/L (5-40) Alanine Aminotransferase (ALT/SGPT) 10 U/L (3-33) Alkaline Phosphatase 92 U/L (35-104) Total Protein 7.6 g/dL (6.6-8.7) Albumin 4.2 g/dL (3.5-5.2) Globulin 3.4 g/dL Albumin/Globulin Ratio 1.2 (1.0-2.7) Amylase Level 66 U/L (10-110) Lipase 34 U/L (< 60) Human Chorionic Gonadotropin, Quant 605 mIU/mL Intake and Output 05/24/16 05/25/16 19:00 07:00 Intake Total 1525 ml 1320 ml Balance 1525 ml 1320 ml Intake Oral 1000 ml 720 ml IV Total 525 ml 600 ml # Voids 3 5 Objective General: alert, cooperative, no distress, appears stated age Head: normocephalic, without obvious abnormality, atraumatic Eyes: conjunctivae/corneas clear. PERRL, EOM's intact Throat: lips, mucosa, and tongue normal. MMM Neck: supple, symmetrical, trachea midline, and no JVD Lungs: clear to auscultation bilaterally Heart: regular rate and rhythm, S1, S2 normal, no murmur, click, rub or gallop Abdomen: soft, tender to palpation, non-distended, bowel sounds normal; no masses or organomegaly Extremities: extremities normal, atraumatic, no cyanosis or edema Pulses: 2+ and symmetric Skin: skin color, texture, turgor normal; no rashes or lesions Neurologic: grossly normal, no focal deficits Assessment/Plan Problem List: (1) Nausea & vomiting (2) Abdominal pain (3) Ectopic Assessment & Plan: See TRACK COACH note. S/P Methotrexate. Assessment/Plan D/C home today. Follow up with primary care physician. ROGER BRENNAN May 25, 2016 15:58
--- NOTE | 2016-05-26 12:53 | Discharge Summary ---
Discharge Summary Hospital Course Date of Admission May 23, 2016 at 02:30 Date of Discharge May 25, 2016 at 10:30 Admitting Diagnosis ectopic Reason for Hospitalization: Abdominal Pain LISANDRA Johnson is a 26 year old female who was admitted on May 23, 2016 at 02:30 for Ectopic Female patient presents to ED for evaluation of abdominal pain. Pain started approximately 30 minutes prior to arrival. Pain is 8/10, sharp, lower. Nonradiating. Notes nausea and vomiting. Denies fevers or chills. Patient states one month ago she had a "". Patient she took the pills she received from [facility]. States she was approximately 6 weeks at the time. Was told there is a problem with her but does not know what the problem was. Denies any vaginal bleeding or discharge. Denies dysuria or hematuria. No aggravating relieving factors. Denies any other associated symptoms Past Medical History: none Past Surgical History: none Pertinent Family History: none Social History: Denies: alcohol use, drug use, smoking Now: No Immunizations: UTD Reviewed Nursing Documentation: PMH: Agreed, PSxH: Agreed Consultations OBGYN Gastroenterology Procedures CT/MRI/US Diagnostic Results : Imaging Test Ordered: Pelvic US Impression Pelvic mass within the midline measuring up to 4.9 cm. The left adnexal mass is also suspected but appears immediately contiguous with the midline lesion. The left adnexal mass may represent an ectopic with the midline mass a heterogeneous blood clot. Hospital Course Medical Decision Making Diagnostic Impression: Primary Impression: Ectopic Qualified Codes: O00.90 - Unspecified ectopic without intrauterine Additional Impression: Abdominal pain Qualified Codes: R10.30 - Lower abdominal pain, unspecified ER Course 25-year-old female presents ED complaining of abdominal pain and vomiting. Had one month ago Differential diagnoses include: PID, TOA, ectopic , retained products of conception Clinical course Patient placed on stretcher. front desk monitor. After initial history and physical I ordered labs, IV fluids, UA, pain medication and US Labs - no leukocytosis, Hb/Hct stable, electrolytes ok, BHCG 605 Pelvic US - pelvic mass within midline . L adenxal mass continguous with midline lesion. ? ectopic Diagnosis - ectopic , abdominal pain Patient admitted to floor in serious condition Hospital Course LABORATORY DATA: On admission from the ER, WBC of 9.4, hemoglobin 12, hematocrit 34, platelets 170. Sodium 140, potassium 2.9, chloride 97, bicarbonate 28, BUN 16, creatinine 0.9, and glucose is 96. Liver function essentially unremarkable. Beta HCG 3605, PT of 10, INR 1.0, PTT of 25. The patient had a transvaginal ultrasound, noted to have 9 x 5.4 centimeter mixed echogenic mass including the left adnexal region extending posteriorly to the uterus, suspect that it represented a large hematoma, raising a concern of ectopic , possibility of the left adnexal origin with the clinical correlation with the clinical findings. The patient had an abdominal ultrasound done, negative for abdominal ultrasound. ASSESSMENT: Ectopic . PLAN: Admit the patient to Med/Surg. We will follow up laboratory. Discussed case with Dr. Shahriar Umanzor' office for MARKET DEVELOPMENT ANALYST consultation as well as follow up with gastrointestinal consultation who had seen the patient already. Monitor laboratory, regular diet, pain control and follow up with beta HCG level. Gastroenterology Problems: (1) Ectopic (2) Abdominal pain (3) Nausea & vomiting Plan recommend BENDING ROLL HAND consult symptomatic treatment at this time zofran prn pain mgmt fu pelvic US >> pelvic mass, see full report. fu abdominal US >> negative fu labs vegetable cook Consult Note 25 year old s/p Medical 1 mo ago Now with probable ectopic - likely twin ectopic remaining from 1 month ago B-HCG = 600 Pt is with mild abdominal pain, no rebound, some increase with deep palpation Assessment/Plan 1. Treat ectopic with Methotrexate IM - ordered previously 2. D/C to home after injection given 3. Follow up with health clinic where patient received medical . Discharge Medications Discontinued Medications: Ibuprofen* (Motrin*) 600 Mg Tablet 600 MG ORAL THREE TIMES A DAY, #30 TAB 0 Refills Discharge Condition Upon Discharge: stable Discharge Disposition Patient was discharged to Street Discharge Diagnoses: (1) Pelvic mass (2) Abdominal pain (3) Ectopic (4) Nausea & vomiting Discharge Instructions Discharge Instructions Special Instructions Homeless Discharge: Patient is being discharged from medical care. A&OX4. After care instructions were given. Referral to community resources were given by social media developer. Patient verbalized understanding of After care instructions; at this time patient does not request medications, equipment or placement. Patient signed patient consent in the medical record for patient destination upon discharge. All medical devices such as IV and ID band were removed. Patient ambulated out with all personal belongings with steady gait. Arlene Cheng N.P. May 26, 2016 12:53
== END 2016-05-25 10:30 | disposition home or self-care (01) | DRG 566 ==
LOC: EDBD 19:30 → EMR 20:45 → EDBEDREQ 05-23 02:03 → 3E 05-23 02:30
DX: O00.90 Unspecified ectopic pregnancy without intrauterine pregnancy (principal)
CPT/HCPCS: 36415; 76700; 76830; 76856; 76857; 80053; 82150; 83690; 84702; 85025; 85610; 85730; 86850; 86900; 86901; J2405